=== PATIENT | female | born 1985 | race Caucasian/White ===

== ENCOUNTER 2017-01-19 00:38 | Emergency (ER) | payer MEDICAID ==
[~2017-01-19] VITALS: Ht 167.6 cm; Wt 70.3 kg
[2017-01-19 00:42] VITALS: BP 120/62
--- NOTE | 2017-01-19 01:07 | NUR ---
PATIENT BIB WHEELCHAIR TO ER BED 3.
--- NOTE | 2017-01-19 01:30 | NUR ---
31Y F BIB SPOUSE C/O OF ABDOMINAL PAIN. PT 18 WKS , NO VAGINAL BLEEDING OR DISCHARGE. PAIN 8/10 IN SCALE, NO N/V NOTED. NO DIARRHEA.
--- NOTE | 2017-01-19 01:42 | NUR ---
PATIENT BEING EVALUATED BY DR. CABRERA.
[2017-01-19 02:30] VITALS: BP 115/60
--- NOTE | 2017-01-19 02:30 | NUR ---
Patient discharged with v/s stable. Written and verbal after care instructions given and explained. Patient alert, oriented and verbalized understanding of instructions. Ambulatory with steady gait. All questions addressed prior to discharge. ID band removed. Patient advised to follow up with PMD. Rx of ZANTAC AND MACROBID given. Patient educated on indication of medication including possible reaction and side effects. Opportunity to ask questions provided and answered.
== END 2017-01-19 02:30 | disposition home or self-care (01) ==
LOC: MED 00:38
DX: O23.42 Unspecified infection of urinary tract in pregnancy, second trimester (principal); O99.612 Diseases of the digestive system complicating pregnancy, second trimester; K29.70 Gastritis, unspecified, without bleeding; Z3A.18 18 weeks gestation of pregnancy; Z88.8 Allergy status to other drugs, medicaments and biological substances